=== PATIENT | female | born 1975 | race American Indian/Alaskan Native ===

== ENCOUNTER 2019-01-01 11:21 | Outpatient (CLI) | payer OTHER ==
--- NOTE | 2019-01-01 15:10 | Ultrasound Report ---
RIGHT DIGITAL DIAGNOSTIC MAMMOGRAM WITH CAD -- 01/01/2019 RIGHT COMPLETE BREAST ULTRASOUND INDICATION: Right axillary palpable lump. History of breast cancer status post left mastectomy. TECHNIQUE: Digital right mammographic imaging was performed. Complete ultrasound of all four (4) marlene drants was performed. This examination was interpreted with the benefit of Computer-Aided Detection ( CAD) analysis. COMPARISON: None. FINDINGS: Breast Density: The breast is heterogeneously dense, which may obscure small masses. MAMMOGRAPHIC FINDINGS: There is no evidence of dominant mass, suspicious calcifications or architectu ral distortion in either breast. An Zloghn-a-Dcmp is partially included in the upper portion of the M LO view. ULTRASOUND FINDINGS: Complete sonographic evaluation of all 4 quadrants and retroareolar region was p erformed. Ultrasound demonstrated no mass, cyst or suspicious shadowing in the breast. Ultrasound o f the right axilla demonstrated an oval heterogeneous solid mass of the skin measuring 1.0 x 0.6 x 1. 1 cm. It contains several echogenic reflectors and a central 4 mm shadowing echogenic reflector. Acco rding to the patient, there has been drainage and there appears to be a communication between the les ion and an outside skin opening. IMPRESSION: Negative right mammogram. Negative ultrasound except for a benign appearing 1 cm skin les ion of the axilla. Ultrasound and clinical findings suggest that this is probably a benign epidermal inclusion cyst or sebaceous cyst. Recommend short-term clinical and ultrasound follow-up. Follow up recommendation: Short term follow up in 3 months. BI-RADS Category 3: Probably Benign. Followup in 3 months. A "normal" or negative report should not discourage follow up or biopsy of a clinically significant f inding. A written summary of these findings will be mailed to the patient. The patient will be entered into a mammography reporting system which will generate a reminder letter for the patient's next appointmen t at the appropriate interval. According to the [employer], yearly mammograms are recommended starting at age 40 and continuing as long as a woman is in good health. Breast MRI is recommended for women with an nadia roximately 20-25% or greater lifetime risk of breast cancer, including women with a strong family his tory of breast or ovarian cancer and women who have been treated for Hodgkin's disease. Signer Name: Louie Brush MD Signed: 01/01/2019 3:06 PM Workstation Name: [id number]
== END 2019-01-01 11:22 | disposition home or self-care (01) ==
LOC: SPVWC 11:21
PROVIDERS: ATTEND Surgery
DX: R92.8 Other abnormal and inconclusive findings on diagnostic imaging of breast (principal); Z85.3 Personal history of malignant neoplasm of breast

== ENCOUNTER 2019-01-23 07:58 | Outpatient (CLI) | payer OTHER ==
--- NOTE | 2019-01-23 08:51 | Cat Scan Report ---
CT chest without contrast INDICATION : H/O CHEST PAIN. Breast cancer patient with acute chest pain TECHNIQUE: Axial imaging performed through the chest without the use of intravenous contrast. All C T scans at this location are performed using CT dose reduction for ALARA by means of automated exposu re control. COMPARISON: None FINDINGS: There is no significant degenerative change in the spine, no acute abnormality, and no ost eoblastic or osteolytic lesion is identified. There is a right-sided port with tip terminating in the SVC in satisfactory position. The heart and g reat vessels appear normal. There is no pathologic mediastinal adenopathy. The lungs are clear. Limited imaging of the upper abdomen shows nothing acute. Left-sided mastectomy and axillary dissection change is present. There are a few shoddy right axillar y lymph nodes but no gross pathologic adenopathy. IMPRESSION: No acute abnormality. Clear lungs. Signer Name: Lambert Ro MD Signed: 01/23/2019 8:46 AM Workstation Name: [id number]
== END 2019-01-23 07:59 | disposition home or self-care (01) ==
LOC: CT 07:58
PROVIDERS: ATTEND Internal Medicine
DX: R07.9 Chest pain, unspecified (principal); Z85.3 Personal history of malignant neoplasm of breast; Z90.12 Acquired absence of left breast and nipple
CPT/HCPCS: 71250